=== PATIENT | female | born 1950 | race African-American/Black ===

== ENCOUNTER 2020-04-22 18:20 | Emergency (ER) | payer MEDICARE, OTHER, SELFPAY ==
--- NOTE | ~2020-04-22 | XR_ITS ---
EXAMINATION: XR chest 1V portable DATE: 04/22/2020 19:48 INDICATION: Shortness of breath, fever, cough and chills. TECHNIQUE: frontal and lateral views of the chest were obtained. COMPARISON: None FINDINGS: Small calcified nodule related to old granulomatous disease versus clavicular bone island projecting over the right upper lung zone. Lungs otherwise clear with no focal airspace opacities, pulmonary destiny ma, pleural effusion or pneumothorax. The cardiomediastinal silhouette is normal. IMPRESSION: 1. No acute cardiopulmonary disease. Reviewed, dictated and finalized at location A. CTOR ASSEMBLER
[2020-04-22 18:46] VITALS: BP 139/85; PULSE 110; RESP 20; TEMP 36.7; O2SAT 97
--- NOTE | 2020-04-22 19:32 | ECG_ITS ---
Measurements Intervals [place] Rate: 113 P: 68 [place]: 112 QRS: 13 QRSD: 77 T: 15 QT: 294 QTc: 404 Interpretive Statements SINUS TACHYCARDIA WITH SHORT WA INTERVAL ABNORMAL ECG Electronically Signed On 04-23-2020 7:10:42 HSE ADVISOR by Abdullahi Poole D.O.
--- NOTE | 2020-04-22 19:35 | ED.FEVER ---
HPI - Fever General Chief Complaint: Fever Stated Complaint: fever, chills Time Seen by Provider: 04/22/20 19:22 History of Present Illness HPI Narrative: 69 yo female with h/o htn, DM presents to the ED for fever. She reports that she has had an intermittent fever about the past week. She thinks her temperature has gotten up to 107, but she is not sure. Additionally she reports cough, SOB, and weakness. When she walks she feels that she may fall. Review of Systems Review of Systems: All systems reviewed & are unremarkable except as noted in HPI and below Constitutional: Constitutional: Reports chills, Reports fatigue and Reports fever(s) Eyes: Eyes: Denies change in vision ENT: Denies dizziness Cardiovascular: Cardiovascular: Denies chest pain Respiratory: Respiratory: Reports cough and Reports dyspnea Gastrointestinal: Gastrointestinal: Denies abdominal pain, Denies constipation, Denies diarrhea, Denies nausea and Denies vomiting Genitourinary: Genitourinary: Denies hematuria and Denies dysuria Musculoskeletal: Musculoskeletal: Reports myalgias Integumentary/Breasts: Skin/Breast: Denies rash Neurologic: Denies dizziness and Reports weakness PMFSH Past Medical History Medical History Diabetes HTN (hypertension) Social History Social History Smoking status: Never smoker Exam Const: General: no acute distress and alert Nutritional Appearance: well nourished Orientation/consciousness: patient oriented x3 HENMT: Head: normal to inspection Neck: Neck: normal visual inspection and no lymphadenopathy noted Resp: Effort & Inspection: normal respiratory effort Auscultation: clear to auscultation bilaterally Cardio: Rate: tachycardic Rhythm: regular rhythm GI: GI Palp: Yes Soft to palpation and No Tenderness to palpation present (GI) Skin: General skin exam: normal color Rashes: no rashes Neuro: General: patient oriented x3, moves all extremities, no focal motor deficits and CN's II-XI intact bilaterally Speech: normal speech Gait exam (Neuro): Normal gait present Extrem: General: no edema Psych: Appearance: grossly normal and well kempt Mental Status: mental status grossly normal Affect: normal affect Thought content: Yes Normal thought content present Course Vital Signs Vital signs: Vital Signs Temperature 36.7 C 04/22/20 18:46 Pulse Rate 110 H 04/22/20 18:46 Respiratory Rate 20 04/22/20 18:46 Blood Pressure 139/85 04/22/20 18:46 Pulse Oximetry 97 04/22/20 18:46 Temperature 37.2 C 04/22/20 22:45 Pulse Rate 98 04/22/20 22:45 Respiratory Rate 16 04/22/20 22:45 Blood Pressure 147/98 H 04/22/20 22:45 Pulse Oximetry 100 04/22/20 22:45 MDM - Fever Differential Diagnosis Differential diagnosis: Likely community acquired pneumonia and other (UTI, COVID-19) Medical Records Attestation: I reviewed the patient's medical records. Lab Data Attestation: I reviewed the patient's lab results. Result diagrams: 04/22/20 19:52 04/22/20 19:52 Labs: Lab Results 04/22/20 04/22/20 04/22/20 Range/Units 19:52 19:52 19:52 WBC 4.6 (4.5-10.0) K/mm3 RBC 4.82 (4.2-5.4) M/mm3 Hgb 12.8 (12.0-15.0) g/dL Hct 39.6 (37.0-47.0) % MCV 82.2 (80-100) fl MCH 26.6 (26-34) pg MCHC 32.3 (32-36) g/dl RDW 13.8 (11.5-14.5) % Plt Count 164 (150-375) k/mm3 MPV 10.2 (7.4-10.4) fl Immature Gran % (Auto) 0.2 (0-0.5) % Neut % (Auto) 62.7 (45.5-73.1) % Lymph % (Auto) 31.3 (18.3-44.2) % Lawrence % (Auto) 5.8 (2.6-8.5) % Eos % (Auto) 0.0 (0-4.4) % Baso % (Auto) 0.0 L (0.2-1.2) % Lymph # (Auto) 1.45 (0.9-3.2) K/mm3 Lawrence # (Auto) 0.3 (0.1-0.6) K/mm3 Eos # (Auto) 0.0 (0-0.3) K/mm3 Baso # (Auto) 0.0 (0.0-0.1) K/mm3 Abs Immat Gran (auto) 0.01 (0.00-0.031
[2020-04-22 20:00] LABS: Hematocrit 39.6 % (37.0-47.0); Hemoglobin 12.8 g/dL (12.0-15.0); Immature Granulocyte Absolute 0.01 K/mm3 (0.00-0.031); Immature Granulocyte Percent A 0.2 % (0-0.5); Lymphocytes Absolute Auto 1.45 K/mm3 (0.9-3.2); Lymphocytes Percent Auto 31.3 % (18.3-44.2); Mean Corpuscular HGB Conc 32.3 g/dl (32-36); Mean Corpuscular Hemoglobin 26.6 pg (26-34); Mean Corpuscular Volume 82.2 fl (80-100); Mean Platelet Volume 10.2 fl (7.4-10.4); Monocytes Absolute Auto 0.3 K/mm3 (0.1-0.6); Monocytes Percent Auto 5.8 % (2.6-8.5); Neutrophils Absolute Auto 2.9 K/mm3 (1.3-6.7); Neutrophils Percent Auto 62.7 % (45.5-73.1); Platelet Count Result 164 k/mm3 (150-375); Red Blood Count 4.82 M/mm3 (4.2-5.4); Red Cell Distribution Width 13.8 % (11.5-14.5); White Blood Count 4.6 K/mm3 (4.5-10.0)
[2020-04-22 20:13] LABS: Lactic Acid Reflex 0.8 mmol/L (0.7-2.1)
[2020-04-22 20:15] LABS: Alanine Aminotransferase 33 U/L (4-35); Albumin Level 4.2 g/dL (3.5-5.1); Alkaline Phosphatase 75 U/L (38-126); Anion Gap 7 mmol/L (8-16); Aspartate Amino Transferase 45 U/L (14-36); Bilirubin,Total 0.5 mg/dL (0.2-1.3); Blood Urea Nitrogen 21 mg/dL (7-17); CRP 2.6 mg/dL (<1.0); Calcium 9.4 mg/dL (8.4-10.2); Carbon Dioxide 30 mmol/L (22-30); Chloride 105 mmol/L (98-107); Estimated CRCL calculation 33 ml/min; Estimated Glomerular Filt Rate 34; Glucose 120 mg/dL (65-105); Potassium 4.3 mmol/L (3.4-5.0); Sodium 142 mmol/L (137-145)
[2020-04-22 20:16] LABS: Add Urine Microscopic? YES; Appearance Urine Cloudy (Clear); Bacteria Urine Trace /hpf; Bilirubin Urine Negative (Negative); Blood Urine Negative (Negative); Color Urine Yellow (Yellow); Glucose Urine UA Negative (Negative); Ketones Urine Negative (Negative); Leukocyte Esterase Ur Trace LEU/UL (Negative); Mucus Urine Rare /lpf; Nitrate Urine Negative (Negative); Protein Urine 2+ mg/dL (Negative); RBC Urine 0-2 /hpf (0-2); Specific Grav Ur 1.015 (1.001-1.035); Squamous Epithelial Cell Urine Many /hpf (Few); Urobilinogen Urine Negative mg/dL (<2.0)
[2020-04-22 21:00] VITALS: BP 128/80; PULSE 104; RESP 16; TEMP 36.9; O2SAT 98
[2020-04-22 22:45] VITALS: BP 147/98; PULSE 98; RESP 16; TEMP 37.2; O2SAT 100
== END 2020-04-22 22:52 | disposition home or self-care (01) ==
PROVIDERS: Emergency Provider Emergency Medicine; PCP Internal Medicine
DX: J06.9 Acute upper respiratory infection, unspecified (principal); E86.0 Dehydration; E11.9 Type 2 diabetes mellitus without complications; I10 Essential (primary) hypertension; R00.0 Tachycardia, unspecified
CPT/HCPCS: 36415; 71045; 80053; 81001; 83605; 85025; 86140; 93005; 99283

== ENCOUNTER 2020-04-29 16:43 | Emergency (ER) | payer MEDICARE, OTHER, SELFPAY ==
[2020-04-29] VITALS (15 sets, daily range): BP systolic 108–131; BP diastolic 76–91; PULSE 119–130; RESP 17–31; TEMP 36.8–36.9; O2SAT 98
--- NOTE | ~2020-04-29 | XR_ITS ---
EXAMINATION: XR chest 1V portable INDICATION: Weakness, hypertension TECHNIQUE: Portable AP chest at 1757 hours COMPARISON: 04/22/2020 FINDINGS: Patchy bilateral airspace opacities are present. There is no pleural effusion or pneumothor ax. The cardiomediastinal silhouette is normal. IMPRESSION: 1. Patchy bilateral airspace opacities, consistent with atelectasis versus pneumonia. Reviewed, dictated and finalized at location A. INUOUS LOFT OPERATOR IMPRESSION: 1. Patchy bilateral airspace opacities, consistent with atelectasis versus pneu monia.
--- NOTE | 2020-04-29 17:21 | PC.NURSE ---
patient taken to ICU per wheelchair by head of housekeeping due to 's declining condition.
[2020-04-29] MEDS: LACTATED RINGERS 1,000 ML 150 ML IV CONT (17:47)
--- NOTE | 2020-04-29 17:48 | PC.NURSE ---
patient back in department. labs sent. IVF started. back on monitoring engineer. alert. oriented. call light in reach.
[2020-04-29 17:51] LABS: Basophils Percent Auto 0.3 % (0.2-1.2); Eosinophils Absolute Auto 0.1 K/mm3 (0-0.3); Eosinophils Percent Auto 1.5 % (0-4.4); Hematocrit 37.6 % (37.0-47.0); Hemoglobin 12.3 g/dL (12.0-15.0); Immature Granulocyte Absolute 0.06 K/mm3 (0.00-0.031); Immature Granulocyte Percent A 0.9 % (0-0.5); Lymphocytes Absolute Auto 2.14 K/mm3 (0.9-3.2); Lymphocytes Percent Auto 31.4 % (18.3-44.2); Mean Corpuscular HGB Conc 32.7 g/dl (32-36); Mean Corpuscular Hemoglobin 26.9 pg (26-34); Mean Corpuscular Volume 82.3 fl (80-100); Mean Platelet Volume 10.2 fl (7.4-10.4); Monocytes Absolute Auto 0.4 K/mm3 (0.1-0.6); Monocytes Percent Auto 6.2 % (2.6-8.5); Neutrophils Absolute Auto 4.1 K/mm3 (1.3-6.7); Neutrophils Percent Auto 59.7 % (45.5-73.1); Platelet Count Result 266 k/mm3 (150-375); Red Blood Count 4.57 M/mm3 (4.2-5.4); Red Cell Distribution Width 14.4 % (11.5-14.5); White Blood Count 6.8 K/mm3 (4.5-10.0)
[2020-04-29 18:06] LABS: Alanine Aminotransferase 67 U/L (4-35); Albumin Level 3.8 g/dL (3.5-5.1); Alkaline Phosphatase 74 U/L (38-126); Anion Gap 12 mmol/L (8-16); Aspartate Amino Transferase 73 U/L (14-36); Bilirubin,Total 0.8 mg/dL (0.2-1.3); Blood Urea Nitrogen 45 mg/dL (7-17); Calcium 9.5 mg/dL (8.4-10.2); Carbon Dioxide 20 mmol/L (22-30); Chloride 110 mmol/L (98-107); Estimated CRCL calculation 27 ml/min; Estimated Glomerular Filt Rate 28; Glucose 166 mg/dL (65-105); Potassium 4.8 mmol/L (3.4-5.0); Sodium 142 mmol/L (137-145)
[2020-04-29 18:13] LABS: CRP 3.6 mg/dL (<1.0)
[2020-04-29 18:29] LABS: Alveolar/Arterial O2 Gradient 30.4 mmHg; Base Excess ABG -8.6 mEq/l (+/-2.0); Device ROOM AIR; Fractional Inspired Oxygen 21 %; HCO3 ABG 16.7 mEq/l (22.0-26.0); Modified Allen's Test Pass; Oxygen Content ABG 16.2 %vol (16.0-22.0); Oxygen Saturation ABG 94.8 % (95.0-100.0); Oxyhemoglobin 93.9 % THb (90.0-100.0); PCO2 ABG 33.7 mmHg (35.0-45.0); PO2 FiO2 Ratio Arterial Blood 3.76 %; Site Drawn RIGHT RADIAL; Total Hemoglobin 12.2 g/dL (12.0-18.0); pH ABG 7.312 (7.350-7.450)
--- NOTE | 2020-04-29 18:33 | ED.WEAKNESS ---
HPI - Weakness General Chief complaint: Weakness Stated complaint: cough, weakness, exposed to covid Time Seen by Provider: 04/29/20 17:10 Source: patient Mode of arrival: ambulatory Limitations: no limitations History of Present Illness HPI Narrative: 69-year-old female History of hypertension and type 2 diabetes She originally came to the ER last weekend and it been ill for a couple of days at that time Complaints are mostly respiratory with a cough and mild shortness of breath, additionally fatigue nausea poor appetite body aches and headache Her who became ill at about the same time is currently critically ill in the ICU here with complications of Covid infection At this time her symptoms are more persistent than worse and her main complaint is just general weakness/fatigue/asthenia Related Data Home Medications Medication Instructions Recorded Confirmed atorvastatin 04/29/20 04/29/20 cyanocobalamin (vitamin B-12) 04/29/20 ergocalciferol (vitamin D2) 04/29/20 [Vitamin D2] lisinopril 04/29/20 metformin mg 04/29/20 metoprolol tartrate 04/29/20 Allergies Allergy/AdvReac Type Severity Reaction Status Date / Time No Known Allergies Allergy Verified 04/29/20 17:46 Review of Systems Review of Systems: All systems reviewed & are unremarkable except as noted in HPI and below Constitutional: Constitutional: Reports chills, Reports fatigue, Reports fever(s) and Reports weakness Cardiovascular: Cardiovascular: Denies chest pain Respiratory: Respiratory: Reports as per HPI, Reports cough and Reports dyspnea Gastrointestinal: Gastrointestinal: Denies diarrhea and Denies vomiting Musculoskeletal: Musculoskeletal: Reports myalgias Neurologic: Denies dizziness and Reports weakness PMFSH Past Medical History Medical History Diabetes HTN (hypertension) Social History Social History Smoking status: Never smoker Exam Const: General: alert Nutritional Appearance: well nourished Orientation/consciousness: patient oriented x3 HENMT: Head: normal to inspection Eyes: EOM: EOMs intact bilaterally Resp: Effort & Inspection: normal respiratory effort, not labored and not tachypneic Auscultation: clear to auscultation bilaterally Cardio: Rate: tachycardic Rhythm: regular rhythm GI: GI Palp: Yes Soft to palpation and No Tenderness to palpation present (GI) Skin: General skin exam: normal color Rashes: no rashes Neuro: General: patient oriented x3 and moves all extremities Speech: normal speech Extrem: General: normal to inspection Course Course Emergency Course: Her O2 saturations were fine her x-ray is stable appearing and after being ill for 8 or 9 days she ought to be on the upswing She feels like she is able to take p.o.'s adequately and go home Discussed with her adding meds to which she is already taking including Eliquis and colchicine and she is interested in doing that and the risks and benefits of each were reviewed Vital Signs Vital signs: Vital Signs Pulse Rate 128 H 04/29/20 17:03 Respiratory Rate 19 04/29/20 17:03 Temperature 36.9 C 04/29/20 19:57 Pulse Rate 119 H 04/29/20 19:31 Respiratory Rate 26 H 04/29/20 19:31 Blood Pressure 114/76 04/29/20 19:31 Pulse Oximetry 98 04/29/20 17:48 MDM - Weakness Lab Data Result diagrams: 04/29/20 17:42 04/29/20 17:42 Labs: Lab Results 04/29/20 04/29/20 04/29/20 Range/Units 17:42 17:42 17:42 WBC 6.8 (4.5-10.0) K/mm3 RBC 4.57 (4.2-5.4) M/mm3 Hgb 12.3 (12.0-15.0) g/dL Hct 37.6 (37.0-47.0) % MCV 82.3 (80-100) fl MCH 26.9 (26-34) pg MCHC 32.7 (32-36) g/dl RDW 14.4 (11.5-14.5) % Plt Count 266 D (150-375) k/mm3 MPV 10.2 (7.4-10.4) fl Immature Gran % (Auto) 0.9 H (0-0.5) % Neut % (Auto)
[2020-04-29 18:45] LABS: Lactic Acid Reflex 1.1 mmol/L (0.7-2.1)
[2020-04-30 18:34] LABS: SARS-CoV-2 RNA PCR Positive
== END 2020-04-29 19:59 | disposition home or self-care (01) ==
PROVIDERS: Emergency Provider Emergency Medicine; PCP Internal Medicine
DX: U07.1 COVID-19 (principal); E11.9 Type 2 diabetes mellitus without complications; I10 Essential (primary) hypertension; Z79.84 Long term (current) use of oral hypoglycemic drugs; R91.8 Other nonspecific abnormal finding of lung field
CPT/HCPCS: 36415; 36600; 71045; 80053; 82728; 82805; 83605; 85025; 86140; 87635; 96360; 96361; 99284; C9803; J7120; U0003

== ENCOUNTER 2023-04-19 13:29 | Emergency (ER) | payer MEDICARE, SELFPAY ==
--- NOTE | ~2023-04-19 | XR_ITS ---
XR hip RT 2V w AP pelvis 04/19/2023 15:15 INDICATION: Pelvic and right hip pain PROCEDURE: AP pelvis and 3 views right hip COMPARISON: No prior studies for comparison. FINDINGS: Fracture, dislocation or subluxation is not identified. Mild osteoarthritis of the right hi p. The soft tissues appear within normal limits. No foreign bodies are identified. IMPRESSION: 1: NO ACUTE BONE OR JOINT ABNORMALITY IDENTIFIED. Reviewed, dictated and finalized at location A. ING CLEANER
--- NOTE | ~2023-04-19 | XR_ITS ---
XR foot RT min 3V 04/19/2023 15:38 Indication: Right foot pain Procedure: 3 views right foot Comparison: No prior studies for comparison. Findings: There is mild osteoarthritis of the first MTP joint with hallux valgus. Osteopenia. Lisfran c joint intact. There is a cerclage wire overlying the distal aspect of the fibula. No focal soft tis madelin abnormality. No foreign bodies. Impression: 1: No acute fracture. Reviewed, dictated and finalized at location A. R Impression: 1: No acute fracture.
--- NOTE | ~2023-04-19 | XR_ITS ---
XR knee RT min 4V 04/19/2023 15:38 Indication: Right knee pain Procedure: 4 views right knee Comparison: No prior studies for comparison. Findings: There is moderate tricompartment osteoarthritis. There are loose bodies posterior to the ella int space. No significant joint effusion. No fracture or traumatic malalignment. There is chondrocalc inosis. Impression: 1: Moderate tricompartment osteoarthritis of the right knee. Reviewed, dictated and finalized at location A. ION COOK Impression: 1: Moderate tricompartment osteoarthritis of the right knee.
[2023-04-19 13:44] VITALS: BP 135/83; PULSE 68; RESP 16; TEMP 36.2; O2SAT 98
[2023-04-19] MEDS: HYDROcodone/acetaminophen (*CRX) 5-325 MG TABLET 1 TAB PO (14:44)
[2023-04-19] MEDS: IBUPROFEN 400 MG TABLET 800 MG PO (14:45)
--- NOTE | 2023-04-19 15:08 | ED.LOWEXIN ---
HPI - Extremity Injury (Lower) General Chief Complaint: Extremity Injury, Lower Stated Complaint: right knee and foot pain Time Seen by Provider: 04/19/23 14:17 Source: patient and RN notes reviewed Mode of arrival: ambulatory Limitations: no limitations History of Present Illness HPI Narrative: This is a 72 year old female who presents for evaluation of right foot and right knee pain . Patient states yesterday she misstepped and she developed right foot and knee pain. Pain is worse with movement. She took 1 tylenol this morning. Related Data Home Medications Medication Instructions Recorded Confirmed atorvastatin 10 mg tablet 04/29/20 04/29/20 cyanocobalamin (vitamin B-12) 04/29/20 1,000 mcg/mL injection solution ergocalciferol (vitamin D2) 1,250 04/29/20 mcg (50,000 unit) capsule (Vitamin D2) lisinopril 20 mg tablet 04/29/20 metformin 1,000 mg tablet mg 04/29/20 metoprolol tartrate 25 mg tablet 04/29/20 Allergies Allergy/AdvReac Type Severity Reaction Status Date / Time No Known Allergies Allergy Verified 04/19/23 14:49 Review of Systems Constitutional: Constitutional: Denies weakness Cardiovascular: Cardiovascular: Denies syncope, Denies rapid heart rate, Denies irregular heart rhythm, Denies leg edema and Denies dyspnea Respiratory: Respiratory: Denies chest congestion, Denies hemoptysis, Denies excessive phlegm production and Denies dyspnea Gastrointestinal: Gastrointestinal: Denies abdominal pain, Denies hematochezia, Denies diarrhea and Denies vomiting Genitourinary: Genitourinary: Denies hematuria and Denies dysuria Musculoskeletal: Musculoskeletal: Reports arthralgias, Denies joint swelling, Denies loss of height and Denies muscle weakness Neurologic: Denies syncope, Denies focal weakness and Denies weakness PMFSH Past Medical History Medical History Diabetes HTN (hypertension) Surgical History Surgical History (Updated 04/19/23 @ 15:10 by Leela Song MD) History of ankle surgery Social History Social History Smoking status: Never smoker Exam Const: General: no acute distress and alert Nutritional Appearance: well nourished Orientation/consciousness: patient oriented x3 HENMT: Head: normal to inspection Resp: Effort & Inspection: normal respiratory effort Skin: General skin exam: normal color Rashes: no rashes Wounds: no wounds Neuro: General: patient oriented x3, moves all extremities and CN's II-XI intact bilaterally Extrem: General: no pedal edema Other: right anterior knee pain with flexion, no significant swelling, TTP right dorsum foot. strong pedal pulses Psych: Mental Status: mental status grossly normal Affect: normal affect Attitude: cooperative Course Reevaluation(s) Reevaluation #1: Patient states that her pain has subsided. She was given ibuprofen and norco. I reviewed xrays with patient. She has appointment with PCP on . She states she does not take eliquis. Date: 04/19/23 Time: 16:00 Vital Signs Vital signs: Vital Signs Temperature 97.2 F L 04/19/23 13:44 Pulse Rate 68 04/19/23 13:44 Respiratory Rate 16 04/19/23 13:44 Blood Pressure 135/83 04/19/23 13:44 Pulse Oximetry 98 04/19/23 13:44 Temperature 97.2 F L 04/19/23 13:44 Pulse Rate 68 04/19/23 13:44 Respiratory Rate 16 04/19/23 13:44 Blood Pressure 135/83 04/19/23 13:44 Pulse Oximetry 98 04/19/23 13:44 MDM - Extremity Injury (Lower) Differential Diagnosis Differential diagnosis: Likely acute internal derangement of knee, fracture of hip and fracture of toe Medical Records Attestation: I reviewed the patient's medical records. Lab Data Attestation: I reviewed the patient's lab results. Imaging Data Radiologist's impression: ITS Impressions Hip/Pelvis X-Ray 04/19/23 15:21 IMPRESSION: 1:
== END 2023-04-19 17:05 | disposition home or self-care (01) ==
PROVIDERS: Emergency Provider General Practice; PCP Internal Medicine
DX: M23.91 Unspecified internal derangement of right knee (principal); S89.91XA Unspecified injury of right lower leg, initial encounter; E11.9 Type 2 diabetes mellitus without complications; I10 Essential (primary) hypertension; Z79.84 Long term (current) use of oral hypoglycemic drugs; M17.11 Unilateral primary osteoarthritis, right knee; X50.9XXA Other and unspecified overexertion or strenuous movements or postures, initial encounter
CPT/HCPCS: 73502; 73564; 73630; 99284; A9270

== ENCOUNTER 2025-01-23 09:51 | Outpatient (CLI) | payer MEDICARE, SELFPAY ==
--- OUTSIDE RECORDS SUMMARY | 2008-07-28 03:15 | XMS_ITS | Continuity of Care Document ---
Author Organization [facility] Address [address] [place] [address] [facility] [address] [place] [address] Phone Care Team Providers Care Fire Sprinkler Designer Name Role Phone Antwan Montgomery Unavailable Unavailable Procedures Procedure Date Office/outpatient Visit, [facility] Advance Directives Directive Yes / No Effective Date File Name No Information Encounters Encounter Description Practice Location Reason(s) For Visit Diagnoses Date Provider Providers Copied on Encounter Office/outpat ient Visit, [facility], [address], [place], [place], [id number], tel:[phone] SEC [facility] No Information 3-[address] Valentina Antwan. [address] [facility] [address], [place], [address], [place]. tel:[phone] Referring Provider: Kai Salinas, [address] [place] [address], Formerly [facility]. tel:[phone] Family History Family Member Type Diagnosis Age At Onset No Information Payers Payer name Insurance type Covered alliance party ID Authoriza tidillon(s) [facility] CI [id number] Social History Type Description Quantity Date Captured Comments Sex Female Smoking Status No Information Chief Complaint And Reason For Visit No Information Reason For Referral Reason For Referral No Information History Of Present Illness Encounter Date Complaint History Of Prese nt Illness No Information Functional Status Date Functional Assessmen t No Information Instructions Date Instruction Additional Infor mation No Information Assessments Type Assessment Date No Information Patient Care Teams Name Effective Dates (start - stop) Status Members No Information
--- OUTSIDE RECORDS SUMMARY | 2024-10-24 06:00 | XMS_ITS | Continuity of Care Document ---
Author Organization [facility] Address [address] [place] [address] Phone Care Team Providers Care Piano Builder Name Role Phone Lucas Marroquin MD Unavailable Unavailable Allergies, Adverse Reactions, Alerts Substance Reaction Status Criticality No Known Allergies Active No Inform ation Medications Medication Instructions Dosage Effective Dates (start - stop) Status Comments gabapentin 300 mg capsule take 1 capsule qhs - Active cyanocobalamin (vitamin B-12) 1,000 mcg capsule - Active CoQ-10 100 mg capsule - Active metoprolol tartrate 25 mg tablet take 1 tablet by oral route 2 times every day 25 MG - Active Vitamin D2 1,250 mcg (50,000 unit) capsule - Active Januvia 25 mg tablet take 1 tablet by oral route every day 25 MG - Active KETOCONAZOLE (unknown strength) apply by topical route every day to the affected area(s) Not Available - Active omeprazole 20 mg capsule,delayed release take 1 capsule by oral route every day 30 minutes to 1 hour before a meal 20 MG - Active amlodipine 5 mg tablet take 1 tablet by oral route every day 5 MG - Active PROAIR DIGIHALER (unknown strength) inhale 2 puff by inhalation route every 4 - 6 hours as needed Not Available - Active allopurinol 100 mg tablet take 1 tablet by oral route every day 100 MG - Active atorvastatin 10 mg tablet take 1 tablet by oral route every day 10 MG - Active ASPIRIN EC (unknown strength) take 1 tablet by oral route every day Not Available - Active lisinopril 20 mg tablet take 1 tablet by oral route every day 20 MG - Active IBUPROFEN (unknown strength) take 1 capsule by oral route every 6 hours as needed Not Available - Active Procedures Procedure Date Dexamethasone sodium phos OFFICE/OUTPATIENT VISIT EST OFFICE/OUTPATIENT VISIT EST OFFICE/OUTPATIENT VISIT EST MRI Spine w/o Contrast-Lumbar 5 RADEX SPI LUMBOSAC 2/3 VIEWS OFFICE/OUTPATIENT VISIT NEW OFFICE/OUTPATIENT VISIT EST RADEX KNE 3 VIEWS OFFICE/OUTPATIENT VISIT EST POSTOP FOLLOW-UP VISIT OFFICE/OUTPATIENT VISIT EST RADEX KNE 3 VIEWS Knee Stabilizer Full Length OFFICE/OUTPATIENT VISIT NEW Advance Directives Directive Yes / No Effective Date File Name No Information Encounters Encounter Description Practice Location Reason(s) For Visit Diagnoses Date Provider Providers Copied on Encounter OFFICE/OUTPA TIENT VISIT EST [facility], [address] [facility] [address], [place], [place], [facility], [place] tel:[phone] [facility] Other spondylosis with radiculopathy, lumbar region 5 Cara Zavala. [address], [place], [address], [place]. tel:[phone] Referring Provider: Osiel Fernández, [address], [place], [address] . tel:[phone] OFFICE/OUTPA TIENT VISIT EST [facility], [address] [facility], [place], [address], [place] tel:[phone] [facility] Bilateral primary osteoarthritis of knee 5 Kain Mcdonald. [address] [facility] [address], [place], [place], [id number]. tel:[phone] Referring Provider: Osiel Fernández, [address], [place], [address] . tel:[phone] OFFICE/OUTPA TIENT VISIT EST [facility], [address], [place], [address], [place] tel:[phone] [facility] Other spondylosis with radiculopathy, lumbar regionBilatera l primary osteoarthritis of kneeGait instability Jul- 0-202 5 Cara Zavala. [address], [place], [address], [place]. tel:[phone] Referring Provider: Osiel Fernández, [address], [place], [address] . tel:[phone] [facility], [address] [facility] [address], [place], [address], [place] tel:[phone] [facility] Other spondylosis with radiculopathy, lumbar region Jul- 0- 5 Cara Lucas. [address], [place], [address], [place]. tel:[phone] [facility], [address] [facility] [address], [place], [address], [place] tel:[phone] [facility] Other spondylosis with radiculopathy, lumbar region Jul-0 7- 5 No Information Referring Provider: Lucas Brand, [address] [facility], [place], [address]. tel:[phone] OFFICE/OUTPA TIENT VISIT NEW [facility], [address] [facility] [address], [place], [address], [place] tel:[phone] [facility] Low back pain, unspecifiedSpo ndylolisthesis , lumbar regionOther spondylosis with radiculopathy, lumbar regionBilatera l primary osteoarthritis of knee Feb-2 4 5 Cara Lucas. [address], [place], [address], [place]. tel:[phone] Referring Provider: Osiel Fernández, [address], [place], [address] . tel:[phone] OFFICE/OUTPA TIENT VISIT EST [facility], [address] [facility], [place], [address], [place] tel:[phone] [facility] Primary osteoarthritis of left kneePrimary osteoarthritis of right kneeRight leg painChronic bilateral low back pain, unspecified whether sciatica presentOther chronic pain Feb-0 - 5 Finnegan Tamara. [address], [place], [place], [address]. tel:[phone] Referring Provider: Osiel Fernández, [address], [place], [address] . tel:[phone] OFFICE/OUTPA TIENT VISIT EST [facility], [address] [address], [place], [address], [place] tel:[phone] [facility] Primary osteoarthritis of right kneeLeft knee pain, unspecified chronicityPrim mary osteoarthritis of left knee Sep-2 4 [facility]. [address] [facility], [place], [place], [address]. tel:[phone] [facility], [address] [address], [place], [address], [place] tel:[phone] [facility] Primary osteoarthritis of right knee Sep- 4 [facility]. [address] [facility], [place], [place], [address]. tel:[phone] Referring Provider: Regino [address], [place], [address] . tel:[phone] OFFICE/OUTPA TIENT VISIT EST [facility], [address] [address], [place], [address], [place] tel:[phone] [facility] Right knee pain, unspecified chronicityPrim mary osteoarthritis of right knee Sep-1 4 [facility]. [address] [facility], [place], [place], [address]. tel:[phone] Referring Provider: Osiel Fernández, [address], [place], [address] . tel:[phone] OFFICE/OUTPA TIENT VISIT NEW [facility], [address], [place], [address], tel:[phone] [facility] Right knee pain, unspecified chronicity Ahsan Saldana. [address], [place], [place], [address]. tel:[phone] Referring Provider: Osiel Fernández, [address], [place], [address] . tel:[phone] Family History Family Member Type Diagnosis Age At Onset No Information Payers Payer name Insurance type Covered green party ID Bridget waldron(s) [facility] Medicare Complete HMO [id number] Social History Type Description Quantity Date Captured Comments Alcohol Use Details Unknown Caffeine Use Details Unknown Tobacco Use Status No Information Smoking Status No Information Sex Female Chief Complaint And Reason For Visit No Information Reason For Referral Reason For Referral No Information Plan Of Treatment Date Type Action Status Referral Ordered: INJ FORAMEN EPIDURAL L/S RT spine, lumbar Appointment date/timeframe: 07/25/2024 ordered Referral Ordered: MRI Spine w/o Contrast-Lumbar spine, lumbar Appointment date/timeframe: 07/18/2024 ordered Referral Ordered: RADEX SPI LUMBOSAC 2/3 VIEWS spine, lumbar ordered Referral Referred To: Denise Fregoso [address] [place], [place], [phone] Ordered: Referrals: Allopathic & Osteopathic Physicians : [facility]. Denise Fregoso. Consult ordered Referral Ordered: RADEX KNE 3 VIEWS LT ordered Referral Ordered: RADEX KNE 3 VIEWS RT knee ordered History Of Present Illness Encounter Date Complaint History Of Prese nt Illness No Information Functional Status Date Functional Assessmen t No Information Instructions Date Instruction Additional Infor anahelen Fall prevention home exercise program handout provided Fall prevention home exercise program handout provided Assessments Type Assessment Date assessment Other spondylosis with radiculop athy, lumbar region Patient Care Teams Name Effective Dates (start - stop) Status Members No Information
--- NOTE | ~2025-01-23 | XR_ITS ---
EXAMINATION:[id number] DATE: 01/23/2025 10:29 INDICATION: Neck pain TECHNIQUE: AP, lateral, lateral swimmers and odontoid views of the cervical spine are provided. COMPARISON: None FINDINGS: Straightening of the normal lordosis in the mid to upper cervical spine. 2 mm anterolisthesis C4 on C5 and mild retrolisthesis C5 on C6 and C6 on C7. Odontoid is intact. Normal atlantoaxial interval. Vertebral body heights are normal. Moderate disc height loss with severe bilateral uncovertebral osteoarthritis at C5-C6 and C6-C7. Mild to moderate disc height loss with mild left-sided and moderate right-sided uncovertebral osteoarthritis at C3-C4. Mild disc height loss at C2-C3. Moderate to severe multilevel cervical facet osteoarthritis. Small posterior endplate osteophytes and the previous noted mild retrolisthesis contributes to mild central canal stenosis at C5-C6 and C6-C7. Prevertebral soft tissues are normal. IMPRESSION: 1. Moderate cervical spondylosis. Reviewed, dictated and finalized at location A.
--- OUTSIDE RECORDS SUMMARY | 2025-01-23 10:13 | XMS_ITS | Clinical Summary ---
Author Organization [facility] Care Team Providers Care Health Workers Name Role Phone Unavailable Primary Care Provider Unavailabl e Social History Tobacco Use Types Packs/Day Years Used Date Smoking Tobacco: Never Assessed Comments Unknown Sex and Gender Information Value Date Recorded Sex Assigned at Not on file Legal Sex Female 10:40 PM CDT Gender Identity Not on file Sexual Orientation Not on file Plan of Treatment Health Maintenance Due Date Last Done Comments Hepatitis C Virus (HCV) Screening 1950 TdaP Immunization 1950 Cologuard 1997 Colonoscopy 1997 Colorectal Cancer Screening 1997 Immunochemical Fecal Occult Blood 1997 Pneumococcal Immunization (5 0+ years) (1 of 1 - PCV) 2002 Zoster Immunization (1 of 2) 2002 SARS-COV-2 Immunization ( - 2023- season) 2024 Influenza Immunization (#1) 01/16/202502/15, 05/01/2014, 03/21/2013 Respiratory Syncytial Virus (RSV) Immunization (Adult) (1 - 1-dose 75+ series) 11/29/2027 Hepatitis B Immunization Aged Out No longer eligible based on patient's age to complete this topic Human Papillomavirus (HPV) Immunization Aged Out No longer eligible b ased on patient's age to complete this topic Meningococcal Immunization (ACWY) Aged Out No longer eligible b ased on patient's age to complete this topic Rotavirus Immunization Aged Out No lo nger eligible based on patient's age to complete this topic
[2025-01-23 10:47] LABS: Hematocrit 41.4 % (37.0-47.0); Hemoglobin 13.0 g/dL (12.0-15.0); Immature Granulocyte Percent A 0.4 % (0-0.5); Lymphocytes Absolute Auto 2.01 K/mm3 (0.9-3.2); Mean Corpuscular HGB Conc 31.4 g/dl (32-36); Mean Corpuscular Hemoglobin 26.7 pg (26-34); Mean Corpuscular Volume 85.2 fl (80-100); Nucleated Red Blood Cells Absolute Auto 0.000 K/mm3 (0.0-0.012); Nucleated Red Blood Cells Perc 0.0 % (0.0-0.2); Platelet Count Result 217 k/mm3 (150-375); Red Blood Count 4.86 M/mm3 (4.2-5.4); White Blood Count 5.3 K/mm3 (4.5-10.0)
[2025-01-23 11:01] LABS: Hemoglobin A1C 6.9 % (<5.7)
[2025-01-23 11:04] LABS: Alanine Aminotransferase 26 U/L (6-35); Albumin Level 4.1 g/dL (3.5-5.1); Alkaline Phosphatase 91 U/L (38-126); Anion Gap 7 mmol/L (4-12); Aspartate Amino Transferase 33 U/L (14-36); Bilirubin,Total 0.6 mg/dL (0.2-1.3); Blood Urea Nitrogen 18 mg/dL (7-17); Calcium 9.7 mg/dL (8.4-10.2); Carbon Dioxide 29 mmol/L (22-30); Chloride 105 mmol/L (98-107); Estimated Glomerular Filt Rate 31; Glucose 160 mg/dL (65-110); Potassium 4.0 mmol/L (3.4-5.0); Sodium 141 mmol/L (137-145); Total Protein 7.7 g/dL (6.3-8.2); Uric Acid 4.2 mg/dL (2.5-7.5)
[2025-01-23 11:08] LABS: MALB Creatinine Ratio 14.6 mg/g (0-30)
[2025-01-23 11:36] LABS: Thyroid Stimulating Hormone 1.730 uIU/mL (0.465-4.680)
== END 2025-01-23 09:52 | disposition home or self-care (01) ==
PROVIDERS: PCP Internal Medicine; Visit Provider Internal Medicine
DX: E11.21 Type 2 diabetes mellitus with diabetic nephropathy (principal); I10 Essential (primary) hypertension; E79.0 Hyperuricemia without signs of inflammatory arthritis and tophaceous disease; E55.9 Vitamin D deficiency, unspecified; M50.30 Other cervical disc degeneration, unspecified cervical region
CPT/HCPCS: 36415; 72040; 80053; 82043; 82306; 83036; 84443; 84550; 85025

== ENCOUNTER 2025-02-15 15:01 | Outpatient (CLI) | payer MEDICARE, SELFPAY ==
--- NOTE | ~2025-02-15 | MM_ITS ---
EXAMINATION: MM screening [facility] BI w sasha HISTORY: Screening TECHNIQUE: Craniocaudal and mediolateral oblique 3-D tomosynthesis images were obtained and synthetic 2-D images were generated. CAD analysis was submitted and interpreted. COMPARISON: Comparison to multiple prior studies sequentially, with oldest reviewed study dated 12/01/2008. BREAST PARENCHYMAL COMPOSITION: Not dense: There are scattered areas of fibroglandular density. FINDINGS: There is no evidence of suspicious mass, calcification, or architectural distortion to suggest malignancy in either breast. There has been no suspicious interval change. IMPRESSION: 1. No mammographic evidence of malignancy. 2. Recommend routine screening mammography in one year. BI-RADS Category 1: Negative Reviewed, dictated and finalized at location B.
--- OUTSIDE RECORDS SUMMARY | 2025-02-15 15:04 | XMS_ITS | Data Portability ---
Author Organization [place] [facility] [employer], Main Office Address [address] [place] [address] Care Team Providers Care Skate Hop Name Role Phone STEVE ROSS Primary Care Provider [phone] Assessment Encounter Date Assessment Date Assessment LastModified by Organization Details LastModified Time 01/13/2023 01/13/2023 This note is dictated and transcribed by [employer]. Currency Machine Operator variances may occur. Despite proofreading, typographical errors may occur. Not available 01/13/2023 12:28:46 10/03/2024 10/03/2024 This note is dictated and transcribed by [employer]. [employer]rency Machine Operator variances may occur. Despite proofreading, typographical errors may occur. Occasional wrong-word or 'yipos-o-eqln' substitutions may have occurred due to the inherent limitations of voice recording. Read the chart carefully and recognize, using context, where substitutions have occurred. Not available 10/03/2024 16:42:26 11/15/2024 11/15/2024 This note is dictated and transcribed by [employer]. Currency Machine Operator variances may occur. Despite proofreading, typographical errors may occur. Occasional wrong-word or 'yduxy-c-pcqq' substitutions may have occurred due to the inherent limitations of voice recording. Read the chart carefully and recognize, using context, where substitutions have occurred. Not available 11/15/2024 16:03:41 11/29/2024 11/29/2024 This note is dictated and transcribed by [employer]. Currency Machine Operator variances may occur. Despite proofreading, typographical errors may occur. Occasional wrong-word or 'vduno-l-sxbo' substitutions may have occurred due to the inherent limitations of voice recording. Read the chart carefully and recognize, using context, where substitutions have occurred. Not available 11/29/2024 14:55:20 Plan of Treatment Reminders Order Date Submit Date Provider Last Modified By Organization Details Last Modified Time Details Appointments Establish ed Patient 15 2024 10:15A M Sixto Vallecillo DPM Not available Not available Not available Lab None recorded. Referral None recorded. Procedures None recorded. Surgeries None recorded. Imaging XR, foot, 3 or more view - radiology may read 2022 023 [facility] ([facility] Sched[facility]), [address] [place], [address], 01/13/2023 14:31:28 XR, ankle, 3 or more view - radiology may read 2022 023 [facility] ([facility] Scheduling), [address] [place], [address], 01/13/2023 14:31:31 Medication Orders ketoconaz ole 2 % topical cream [address] [id number], [address] [place], [place], [id number], 11/29/2024 14:58:11 ketoconaz ole 2 % topical cream [address] [facility] #[id number], [address] , [place], [place], [phone], 01/13/2023 12:20:07 Patient TargetsNo targets recorded. Patient InstructionsNo instructions recorded. Reason for Referral None Reported. Results Created Date Observation Date Name Description Value Unit Range Abnormal Flag Note LastModifiedBy Organization Detail LastModifiedTime 01/14/20 23 01/13/2023 XR, foot, 3 or more view [facility] [address] [place] [address] Patien t Name: OTILIA TRAN ion #: [id number] Sex: F : 1950 9 Dictat ed By: Domingo Martines Attend ing Physic ebony: SIXTO LAZARO Orderi ng Physic ebony: SIXTO LAZARO Exam Date: 2022 11:48 AM Exam Name: XR FOOT BILAT 3V Admitt ing Diagno sis(es ): Right Ankle Clinic al Indica tion: pain in ankle Compar serg: None FINDIN GS: The AP, obliqu e, and latera l views of the ankle show normal alignm ent withou t fractu res or disloc ations . The mortis e is normal . The tibiot alar joint and talar dome are unrema rkable . The subtal ar joint is unrema rkable . There is no ankle joint effusi on. The distal tibia- fibula r alignm ent is unrema rkable . There is no soft tissue swelli ng or radiop aque foreig n bodies . There is a ring noted along the tip of the fibula . IMPRES AAKASH: No fractu res or disloc ation of the right ankle. Postsu rgical change s around the tip of the distal fibula Foot 3 views Clinic al Indica tion: pain in ankle Compar serg: None FINDIN GS: AP, obliqu e, and latera l views of the left foot and right foot show normal alignm ent withou t fractu res or disloc ations . The toe interp halang eal joints , tarsom etatar rayshawn joints , metata rsopha langea l joints and subtal ar joint are unrema rkable . The talar dome is normal . There is no soft tissue swelli ng or radiop aque foreig n bodies . Arthri tic Page 1 [facility] [address] [place] [address] [phone] Patien t Name: OTILIA TRAN Access ion #: [id number] Sex: F : 1950 9 Dictat ed By: Domingo Martines Attend ing Physic ebony: ZACH CHAVEZ Physic ebony: SIXTO LAZARO Exam Date: 2022 11:48 AM Exam Name: XR FOOT BILAT 3V Admitt ing Diagno sis(es ): change s are seen at the subtal ar joints bilate rally. IMPRES AAKASH: No acute fractu res identi fied. Bilate ral subtal ar joint arthri tis. SL: HM-IC- PHAM1 SL: HM-IC- PHAM1 Electr onical ly Signed by: Domingo Martines at 2022 13:29: 11 PM Page 2 [email or web address] [facility] (Imaging) [address] [place], [address], 01/13/2023 15:15:58 01/14/20 23 01/13/2023 XR, ankle , 3 or more view [facility] [address] [place] [id number] Patien t Name: OTILIA TRAN Access ion #: [id number] Sex: F : 1950 9 Dictat ed By: Domingo Martines Attend ing Physic ebony: SIXTO LAZARO Physic ebony: SIXTO LAZARO Exam Date: 2022 11:48 AM Exam Name: XR ANKLE RT 3V+ Admitt ing Diagno sis(es ): Right Ankle Clinic al Indica tion: pain in ankle Compar serg: None FINDIN GS: The AP, obliqu e, and latera l views of the ankle show normal alignm ent withou t fractu res or disloc ations . The mortis e is normal . The tibiot alar joint and talar dome are unrema rkable . The subtal ar joint is unrema rkable . There is no ankle joint effusi on. The distal tibia- fibula r alignm ent is unrema rkable . There is no soft tissue swelli ng or radiop aque foreig n bodies . There is a ring noted along the tip of the fibula . IMPRES AAKASH: No fractu res or disloc ation of the right ankle. Postsu rgical change s around the tip of the distal fibula Foot 3 views Clinic al Indica tion: pain in ankle Compar serg: None FINDIN GS: AP, obliqu e, and latera l views of the left foot and right foot show normal alignm ent withou t fractu res or disloc ations . The toe interp halang eal joints , tarsom etatar rayshawn joints , metata rsopha langea l joints and subtal ar joint are unrema rkable . The talar dome is normal . There is no soft tissue swelli ng or radiop aque foreig n bodies . Arthri tic Page 1 [facility] [address] [place] [address] Patien t Name: OTILIA TRAN Access ion #: [id number] Sex: F : 1950 9 Dictat ed By: Domingo Martines Attend ing Physic ebony: ZACH CHAVEZ Orderi ng Physic ebony: SIXTO LAZARO Exam Date: 2022 11:48 AM Exam Name: XR ANKLE RT 3V+ Admitt ing Diagno sis(es ): change s are seen at the subtal ar joints bilate rally. IMPRES AAKASH: No acute fractu res identi fied. Bilate ral subtal ar joint arthri tis. SL: HM-IC- PHAM1 SL: HM-IC- PHAM1 Electr onical ly Signed by: Domingo Martines at 2022 13:29: 11 PM Page 2 [email or web address] [facility] (Imaging) [address] [place], [address], 01/13/2023 15:15:58 Result Notes Documentation Provider Name and Address Organization Details Recorded Time Xr, Foot, 3 Or More View : [facility] [address] [place] [address] Patient Name: GALDINO, OTILIA Sex: F : 1950 Dictated By: Domingo Martines Attending Physician: SIXTO VALLECILLO Ordering Physician: SIXTO VALLECILLO Exam Date: 01/13/2023 11:48 AM Exam Name: XR FOOT BILAT 3V Admitting Diagnosis(es): Right Ankle Clinical Indication: pain in ankle Comparison: None FINDINGS: The AP, oblique, and lateral views of the ankle show normal alignment without fractures or dislocations. The mortise is normal. The tibiotalar joint and talar dome are unremarkable. The subtalar joint is unremarkable. There is no ankle joint effusion. The distal tibia-fibular alignment is unremarkable. There is no soft tissue swelling or radiopaque foreign bodies. There is a ring noted along the tip of the fibula. IMPRESSION: No fractures or dislocation of the right ankle. Postsurgical changes around the tip of the distal fibula Foot 3 views Clinical Indication: pain in ankle Comparison: None FINDINGS: AP, oblique, and lateral views of the left foot and right foot show normal alignment without fractures or dislocations. The toe interphalangeal joints, tarsometatarsal joints, metatarsophalangeal joints and subtalar joint are unremarkable. The talar dome is normal. There is no soft tissue swelling or radiopaque foreign bodies. Arthritic Page 1 [facility] [address] [place], [place] [id number] Patient Name: OTILIA AHMADI Sex: F : 1950 Dictated By: Domingo Martines Attending Physician: RUTH ANN CHAVEZ Ordering Physician: SIXTO VALLECILLO Exam Date: 01/13/2023 11:48 AM Exam Name: XR FOOT BILAT 3V Admitting Diagnosis(es): changes are seen at the subtalar joints bilaterally. IMPRESSION: No acute fractures identified. Bilateral subtalar joint arthritis. SL: MARCOS-IC-PHAM1 SL: MARCOS-IC-PHAM1 Page 2 Sixto Vallecillo DPM [address], [address], [facility] [employer] [facility] 01/13/2023 15:15:58 Xr, Ankle, 3 Or More View : [facility] [address] [place] [address] Patient Name: OTILIA AHMADI Sex: F : 1950 Dictated By: Domingo Martines Attending Physician: SIXTO VALLECILLO Ordering Physician: SIXTO VALLECILLO Exam Date: 01/13/2023 11:48 AM Exam Name: XR ANKLE RT 3V+ Admitting Diagnosis(es): Right Ankle Clinical Indication: pain in ankle Comparison: None FINDINGS: The AP, oblique, and lateral views of the ankle show normal alignment without fractures or dislocations. The mortise is normal. The tibiotalar joint and talar dome are unremarkable. The subtalar joint is unremarkable. There is no ankle joint effusion. The distal tibia-fibular alignment is unremarkable. There is no soft tissue swelling or radiopaque foreign bodies. There is a ring noted along the tip of the fibula. IMPRESSION: No fractures or dislocation of the right ankle. Postsurgical changes around the tip of the distal fibula Foot 3 views Clinical Indication: pain in ankle Comparison: None FINDINGS: AP, oblique, and lateral views of the left foot and right foot show normal alignment without fractures or dislocations. The toe interphalangeal joints, tarsometatarsal joints, metatarsophalangeal joints and subtalar joint are unremarkable. The talar dome is normal. There is no soft tissue swelling or radiopaque foreign bodies. Arthritic Page 1 [facility] [address] [place] [address] Patient Name: OTILIA AHMADI Sex: F : 1950 Dictated By: Domingo Martines Attending Physician: RUTH ANN CHAVEZ Ordering Physician: SIXTO VALLECILLO Exam Date: 01/13/2023 11:48 AM Exam Name: XR ANKLE RT 3V+ Admitting Diagnosis(es): changes are seen at the subtalar joints bilaterally. IMPRESSION: No acute fractures identified. Bilateral subtalar joint arthritis. SL: CESIA-PHAM1 SL: HM-IC-PHAM1 Page 2 Sixto Vallecillo DPM [address] [facility], [facility] [address], [place], [address], [employer] [facility] 01/13/2023 15:15:58 Problems Name Problem SNOMED Code Status Onset Date Resolution Date Notes Provider Name and Address Organization Details Recorded Time Irritable bowel syndrome 09344064 Active Not Available [facility] 3 14:58:49 Benign essential hypertensi on 8557733 Active Not Available [facility] 3 14:58:49 Gastroesop hageal reflux disease 031181175 Active Not Available [facility] 3 14:58:49 Gallstone 090478713 Active Not Available [facility] 3 14:58:49 Pure hyperchole sterolemia 474218139 Active Not Available [facility] 3 14:58:49 Abnormal renal function 38936297 Active Not Available [facility] 3 14:58:49 Osteoarthr itis 360253093 Active Not Available [facility] 3 14:58:49 Type 2 diabetes mellitus 01692313 Active Not Available [facility] 3 14:58:49 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 07771391 Active 2016 Sixto Vallecillo DPM [address] [facility], [facility] [address], [place], [address] , [employer] [facility] [employer] 5 13:58:52 Seasonal allergy 477685740 Active 2022 Mariann hernandez, [employer] [facility] 3 12:08:55 Asthma 252797850 Active 2022 Mariann hernandez, [employer] [facility] 3 12:09:02 Disorder of eye 352628214 Active 2022 Mariann hernandez, [employer] 3 12:09:19 Hyperchole sterolemia 95047695 Active 2022 Mariann hernandez [employer] 3 12:09:30 Hypertensi ve disorder 11530123 Active 2022 Mariann hernandez, [employer] 3 12:09:38 Tinea pedis 3255676 Active 2022 Sixto Vallecillo DPM [address], [place], [address] , [employer] 3 12:18:04 Ankle pain 035418790 Active 2022 Sixto Vallecillo DPM [address], [address], [place], [address] , [employer] 3 12:18:14 Pain in bilateral feet 7801812414300 9102 Active 2022 Sixto Vallecillo DPM [address], [address], [place], [address] , [employer] 3 12:19:15 Gout 25694136 Active 2022 Sixto Vallecillo DPM [address], [address], [place], [address] , [employer] 3 12:27:50 Onychomyco sis of toenails 398934133 Active 2024 Sixto Vallecillo DPM [address], [address], [place], [address] , [employer] 5 16:42:44 Notes:BLOOD CLOTS, ULCERS, U SE OF BLOOD THINNERS Problem Notes None recorded. Procedures Surgical History Date Name Laterality Status Provider Name and Address Organization Details Recorded Time 5 Toenail avulsion completed Sixto Vallecillo DPM [address], [address], [place], [address], [employer] 11/15/2024 16:03:13 5 Nail Debridement completed Sixto Vallecillo DPM [address], [address], [place], [address], [facility] 10/11/2024 13:56:53 Imaging Results None recorded. Procedure Notes None recorded. Medical Equipment None Reported. Allergies Allergen ID Allergen Name Allergen Category Reaction Reaction Severity Criticality Documentation Date Start Date Code Code System Note Provider Name and Address Organization Details Recorded Time 18763 Vioxx medicatio n dizziness Not available Not available 07/16/2022 27044 9 RxNorm Not Available [facility] 3 15:02:08 Medications Name Sig Start Date Stop Date Status Note LastModified by Organization Details LastModified Time Pravachol 40 mg tablet Take 1 tablet every day by oral route. 2012 active Not Available Not Available Not Avai lable amoxicillin 500 mg capsule Take 1 capsule 3 times a day by oral route for 10 days. 07/07 completed Not Available Not Available Not Available metformin 500 mg tablet one three times a day 07/01 completed Not Available Not Available Not Available atorvastati n 10 mg tablet active Not Available Not Available Not Available aspirin 325 mg tablet Take 1 tablet every day by oral route. 11/12 completed Not Available Not Available Not Available ibuprofen 800 mg tablet TAKE 1 TABLET BY MOUTH THREE TIMES DAILY NEEDED FOR PAIN active Not Available Not Available No t Available benzonatate 200 mg capsule Take 1 capsule 3 times a day by oral route. 11/12 completed Not Available Not Available Not Available lisinopril 20 mg tablet TAKE 1 TABLET BY MOUTH ONCE DAILY active Not Available Not Available No t Available amlodipine 2.5 mg tablet TAKE 1 TABLET BY MOUTH EVERY DAY 01/13 completed Not Available Not Available Not Available ciprofloxac in 250 mg tablet TAKE 1 TABLET BY MOUTH EVERY 12 HOURS FOR 5 DAYS 01/13 completed Not Available Not Available Not Available amlodipine 5 mg tablet Take 1 tablet every day by oral route. active Not Available Not Available No t Available allopurinol 100 mg tablet active Not Available Not Available Not Available OneTouch Ultra Test strips ONE TOUCH ULTRA TEST STRIPS TEST TWICE A DAY active Not Available Not Available No t Available metformin 1,000 mg tablet TAKE 1 TABLET BY MOUTH TWICE A DAY 01/13 completed Not Available Not Available Not Available diclofenac 50 mg-misopros meghan 200 mcg tablet,imme d.and delayed release TAKE ONE TABLET BY MOUTH TWICE DAILY active Not Available Not Available No t Available Amaryl 2 mg tablet half tablet daily 2012 active Not Available Not Available Not Avai lable gabapentin 300 mg capsule TAKE 1 CAPSULE BY MOUTH EVERY DAY AT BEDTIME active Not Available Not Available No t Available omeprazole 20 mg capsule,del ayed release active Not Available Not Available Not Available raloxifene 60 mg tablet TAKE 1 TABLET BY MOUTH EVERY DAY 01/13 completed Not Available Not Available Not Available Bentyl 10 mg capsule Take 1 capsule 3 times a day by oral route. 11/12 completed Not Available Not Available Not Available pravastatin 20 mg tablet TAKE ONE TABLET BY MOUTH DAILY 11/12 completed Not Available Not Available Not Available diclofenac sodium 50 mg tablet,jackie yed release TAKE ONE TABLET BY MOUTH TWICE DAILY active Not Available Not Available No t Available ibuprofen 600 mg tablet TAKE 1 TABLET BY MOUTH THREE TIMES DAILY NEEDED active Not Available Not Available No t Available albuterol sulfate HFA 90 mcg/actuati on aerosol inhaler active Not Available Not Available Not Available Vitamin D2 1,250 mcg (50,000 unit) capsule TAKE 1 CAPSULE BY MOUTH ONCE A WEEK active Not Available Not Available No t Available ketoconazol e 2 % topical cream APPLY TO THE AFFECTED AREA(S) 1st and 2nd toenail, 0.5 gram to each nail BY TOPICAL ROUTE ONCE DAILY active Not Available Not Available No t Available Adult Low Dose Aspirin 81 mg tablet,jackie yed release Take 1 tablet every day by oral route. 2016 active Not Available Not Available Not Avai lable metoprolol tartrate 25 mg tablet active Not Available Not Available No t Available Evista 07/01 completed Not Available Not Available Not Available Januvia 25 mg tablet TAKE 1 TABLET BY MOUTH DAILY active Not Available Not Available No t Available ProAir RespiClick 90 mcg/actuati on breath activated active Not Available Not Available No t Available Vitals Date Recorded Body height Body mass index (BMI) Body weight Heart rate Respiratory rate Oxygen saturation Oxygen saturation in Arterial blood by Pulse oximetry Systolic And Diastolic Provider Name and Address Organization Details Last Updated DateTime 5 170.18 cm 34.1 kg/m2 91462.1 4 g 83 /min 14 /min 98 % 98 % 151/99 mm[Hg] Judy [facility] [employer] [facility] 5 16:03:44 Date Recorded Body height Body mass index (BMI) Body weight Heart rate Respiratory rate Oxygen saturation Oxygen saturation in Arterial blood by Pulse oximetry Systolic And Diastolic Provider Name and Address Organization Details Last Updated DateTime 5 170.18 cm 34.1 kg/m2 66330.1 4 g 83 /min 14 /min 98 % 98 % 131/81 mm[Hg] Judy Efra [facility] [employer] [facility] 5 14:21:19 Date Recorded Body height Body mass index (BMI) Body weight Heart rate Respiratory rate Oxygen saturation Oxygen saturation in Arterial blood by Pulse oximetry Systolic And Diastolic Provider Name and Address Organization Details Last Updated DateTime 5 170.18 cm 34.1 kg/m2 56695.1 4 g 83 /min 14 /min 99 % 99 % 125/77 mm[Hg] Judy Kraus [facility] [employer] [facility] 5 14:24:29 Date Recorded Body height Body mass index (BMI) Body weight Provider Name and Address Organization Details Last Updated DateTime 01/13/2023 170.18 cm 34.1 kg/m2 50873.14 g Mariann Emmett [facility] [employer] [facility] 01/13/2023 12:06:23 Date Recorded Heart rate Respiratory rate Oxygen saturation Oxygen saturation in Arterial blood by Pulse oximetry Systolic And Diastolic Provider Name and Address Organization Details Last Updated DateTime 3 79 /min 14 /min 98 % 98 % 128/78 mm[Hg] Judy [facility] [employer] [facility] 3 12:08:51 Social History None recorded. Functional Status Question Answer Note LastModified by Organizat ion Details LastModified Time What is your level of alcohol consumption? Occasional Information not available 01/13/2023 Mental Status None recorded. Family History Relationship Description Onset Age of this Age Resolved Age Notes LastModified by Organization Details LastModified Time Unspecified Relation Diabetes mellitus ILENELIN G Not available 01/13/2023 12:10:31 Unspecified Relation Arthritis ILENELIN G Not available 01/13/2023 12:10:42 Unspecified Relation Hypertensive disorder ILENELIN G Not available 01/13/2023 12:10:56 Unspecified Relation Heart disease TAMMIE Sims Not available 01/13/2023 12:11:14 Notes:Mother 83 yea rs old Father 65 years old 4 Brothers 3 Living 4 Sisters 4 Living Mother Hx: HTN, CRF Father Hx: MVA Brother Hx: HTN (4) , DM (1) one lung cancer One sister has HTN Medical History Condition Response USE OF BLOOD THINNERS Y DIABETES, TYPE Y ALLERGIES/HAYFEVER Y HYPERTENSION Y HIGH CHOLESTEROL / HYPERLIPIDEMIA Y BLOOD CLOTS Y Gynecological HistoryNo gynecological history recorded. Obstetrics History GPAL:G 0 P 0 0 0 0 Immunizations Vaccine Type Date Status Note Provider Nam e and Address Organization Details Recorded Time Influenza, split virus, trivalent, preservative 3 completed Not Available [facility] 07/16/2022 15:01:59 Influenza, high-dose, trivalent, PF 9 completed Not Available [facility] 07/16/2022 15:01:59 Influenza, high-dose, trivalent, PF 8 completed Not Available [facility] 07/16/2022 15:01:59 Influenza, split virus, quadrivalent, preservative 7 completed Not Available [facility] 07/16/2022 15:01:59 Influenza, split virus, quadrivalent, preservative 5 completed Not Available [facility] 07/16/2022 15:01:59 Influenza, split virus, quadrivalent, PF 6 completed Not Available [facility] 07/16/2022 15:02:00 Influenza, split virus, quadrivalent, preservative 5 completed Not Available [facility] 07/16/2022 15:02:00 Influenza, split virus, trivalent, preservative 4 completed Not Available [facility] 07/16/2022 15:02:00 Past Encounters Encounter ID Performer Location Encounter Start Date Encounter Closed Date Diagnosis/Indication Diagnosis SNOMED-CT Code Diagnosis ICD10 Code Diagnosis IMO Codes Diagnosis Note [id number] Sixto Vallecillo DPM [facility] [place] [address] [facility] [address] [place] [address] 01/13/2023 11:59:31 01/13/2023 14:17:54 Tinea pedis 9656536 B35.3 bilateral feetdaily foot hygieneRx ketoconazo lefollow-u p in 2 weeks if not resolved Ankle pain 931800398 M25 .579 wire in distal fibulaankl e x-rays in 2018 right- reviewed-- healed fracture with intact wire and normal ankle mortiseobt ain new x-raysreco mmend supportive shoe gear Pain in bi lateral feet 8144238379 5557509 M79.671 M79.672 x-rays bilateral feet in 2018 reviewed- negative for acute injury, normal joint space, normal bone density, new erosive changes, no lytic lesionsobt ain new x-raysreco mmend supportive shoe gear Gout 03938064 M10.9 continue with allopurino lEducated on eating habitsfoll ow-up with PCP for chronic management [id number] Sixto Vallecillo DPM [facility] [place] [address] [place] [address] 10/03/2024 15:51:01 10/12/2024 10:30:27 Onychomycosis of toenails [id number] B35.1 [id number] Nails debrided without incident 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 Patient is to check feet daily for new wounds, blisters, redness to prevent infection and ulceration s to the feet. Patient will return to clinic in 3 months for diabetic foot workup. [id number] Sixto Vallecillo DPM [facility] [place] [facility] [place] [address] [phone] 11/15/2024 14:13:47 11/16/2024 15:57:47 Onychomycosis of toenails [id number] B35.1 [id number] Total nail avulsion performed left great toe and 2nd toewound care and dressings reviewedfo llow-up in 10 days [id number] Sixto Vallecillo DPM [facility] [place] [facility] [place] [address] [phone] 11/29/2024 14:15:55 11/30/2024 15:04:47 Onychomycosis of toenails [id number] B35.1 [id number] Total nail avulsion healed- left great toe and 2nd toewound care and dressings reviewedfo llow-up 3 months Health Concerns Section Related Observation LastModified by Organization Detai ls LastModified Time None Recorded Concern Status LastModified by Organization Details LastModified Time None Recorded Advance Directives Directive None Recorded Payers Insurance Date Sequence Insurance Name Policy Number Policy Christian Covered Member ID Christian Member ID Guarantor Name 11/26/2024 1 [facility] (MEDICARE REPLACEMENT/A DVANTAGE - PPO) [id number] Otilia Ahmadi [id number] Otilia Ahmadi Notes Date Note Type Note Provider Name and Address Organization Details Recorded Time 01/13/2023 text/html . Patient is a 72-year-old female who presents the office with multiple complaints. Patient has dry skin with peeling on the bottom of her feet. Patient states this has been present for few weeks. Patient denies any treatment for this condition. Patient denies any rashes or open wounds. Patient states that she also has ankle pain to which she has had previous open reduction internal fixation of the right ankle. Patient states this was several years ago but has been recently causing her some discomfort. Patient states she is worried hardware might be coming loose. Patient states she also has bilateral foot pain which she is currently being treated for gout. Patient has no redness, swelling, significant arthritic changes of the joints. Patient states the pain is diffuse about her foot. Patient has no one place pain. Patient denies any injury to the foot. Patient had recent x-rays in 2018 which were reviewed with the patient and negative for any acute findings with ankle x-rays as well which were normal with a healed fracture of the fibula with intact hardware. Sixto Vallecillo DPM [address] [place] [address] [address], [place], [address], [facility] [place] 01/13/2023 14:16:25 10/03/2024 text/html . Patient is a 73-year-old female she presents the office with complaints of toenail fungus to the left foot. Patient has thickened, dystrophic, discolored toenails 1 through 4. Patient denies any treatment. Patient states her nails have been like this for several years she was curious if there was any treatment that could be performed. Sixto Vallecillo DPM [address], [place], [address], [email or web address] 10/11/2024 13:59:29 11/15/2024 text/html Patient returns for nail procedure. Patient understands all risks, benefits, complications of the planned procedure. Patient elects to continue despite possible risks. Patient's risks include but not limited to the following- pain, infection, non-healing wound, loss of toe, scar, nail deformity, continued nail growth. Sixto Vallecillo DPM [address], [place], [address], [email or web address] 11/15/2024 16:04:32 11/29/2024 text/html . Patient is a 74-year-old female who returns the office for total nail avulsion of the left great and 2nd toenails they are completely healed there is no signs of infection she denies any complaints of pain. Patient denies any other complaints. Sixto Vallecillo DPM [address], [place], [address], [email or web address] 11/29/2024 15:00:42 OBGyn Episode No OBEpisode recorded.
--- OUTSIDE RECORDS SUMMARY | 2025-02-15 15:04 | XMS_ITS | Clinical Summary ---
Author Organization [facility] Care Team Providers Care Generator Mechanic Name Role Phone Unavailable Primary Care Provider [...] 2002 Zoster Immunization (1 of 2) 2002 Influenza Immunization (#1) 01/16/202502/15, 05/01/2014, 03/21/2013 SARS-COV-2 Immunization ( season) 2025 Respiratory Syncytial Virus (RSV) Immunization (Adult) (1 [...]
== END 2025-02-15 15:02 | disposition home or self-care (01) ==
PROVIDERS: PCP Internal Medicine; Visit Provider Internal Medicine
DX: Z12.31 Encounter for screening mammogram for malignant neoplasm of breast (principal)
CPT/HCPCS: 77063; 77067